=== PATIENT | female | born 2000 | race Caucasian/White ===

== ENCOUNTER 2024-01-04 21:32 | Emergency (ER) | payer SELFPAY ==
[~2024-01-04] VITALS: Ht 160 cm; Wt 65.8 kg
[~2024-01-04 21:32] MED LIST: AMOX-1230 PO
[2024-01-04 21:39] VITALS: BP 126/82; PULSE 88; RESP 16; TEMP 97.4; O2SAT 100
[2024-01-04] MEDS: ACETAMINOPHEN EXTRA STRENGTH 500 MG TAB PO ONE (22:03)
[2024-01-04 22:06] VITALS: BP 126/82; PULSE 88; RESP 16; TEMP 97.4; O2SAT 100
== END 2024-01-04 22:06 | disposition home or self-care (01) ==
LOC: MED 21:32
DX: S01.01XA Laceration without foreign body of scalp, initial encounter (principal); Z79.899 Other long term (current) drug therapy; W22.8XXA Striking against or struck by other objects, initial encounter; Y93.89 Activity, other specified; Y92.89 Other specified places as the place of occurrence of the external cause; Y99.8 Other external cause status
CPT/HCPCS: 12001; 90471; 90715; 99283